=== PATIENT | female | born 1990 | race Caucasian/White ===

== ENCOUNTER 2020-06-11 23:08 | Observation (INO) ==
[2020-06-11 21:58] LABS: Basophils # 0.1 K/mcL (0.0-0.2); Basophils % 0.5 %; Eosinophils # 0.1 K/mcL (0.0-0.6); Eosinophils % 0.9 %; Hematocrit 31.2 % (35.3-44.9); Hemoglobin 9.1 g/dL (11.5-15.4); Immature Granulocytes % 2.5 % (0-4); Immature Platelets 18.4 % (1.1-6.1); Lymphocytes # 2.1 K/mcL (0.6-4.6); Lymphocytes % 15.2 %; Mean Corpuscular HGB Conc 29.2 g/dL (31.6-35.5); Mean Corpuscular Hemoglobin 21.5 pg (28.0-33.3); Mean Corpuscular Volume 73.8 fL (83.0-100.0); Mean Platelet Volume 12.9 fL (9.4-12.4); Neutrophils # 10.3 K/mcL (1.6-8.9); Nucleated Red Blood Cells 0.6 /100 WBC (0); Platelet Count 256 K/mcL (140-400); Red Blood Count 4.23 M/mcL (3.82-4.97); Red Cell Distribution Width 15.9 % (11.5-14.5); Segmented Neutrophils % 73.9 %; White Blood Count 13.9 K/mcL (4.3-11.1)
[2020-06-11 22:04] LABS: Bacteria,Urine Few per hpf (None-Few); Bilirubin,Urine Negative (Negative); Blood,Urine Negative (Negative); Clarity,Urine Turbid (Clear); Color,Urine Yellow (Yellow); Glucose,Urine (UA) Normal (Normal); Ketones,Urine Trace mg/dL (Negative); Leukocyte Esterase,Urine Large (Negative); Mucus,Urine Few per lpf (None-Few); Nitrite,Urine Negative (Negative); Protein,Urine 200 mg/dL (Neg-Trace); Specific Gravity,Urine > 1.030 (1.010-1.025); Squamous Epithelial Cell,Urine Moderate per hpf (None-Few); WBC,Urine 15-30 per hpf (0-3)
[2020-06-11 22:13] LABS: Alanine Aminotransferase 17 Units/L (7-52); Aspartate Amino Transferase 24 Units/L (13-39); BUN/Creatinine Ratio 11 (6-26); Blood Urea Nitrogen 7 mg/dL (6-20); Lactate Dehydrogenase 169 Units/L (140-271); Uric Acid 6.4 mg/dL (2.3-7.6); eGFR For African Americans > 60 (> 60); eGFR For Non-African Americans > 60 (> 60)
[2020-06-11 23:01] LABS: Protein/Creatinine Ratio,Urine 0.27 mg/mg (0.00-0.20)
[~2020-06-11 23:08] MED LIST: *HR* Labetalol 20 MG/4 ML SYRINGE IVP ONE; Ringers Solution, Lactated 1,000 ML IVC ONE; Ringers Solution, Lactated 1,000 ML IVC SCH
[2020-06-12] MEDS ORDERED: hydrOXYzine pamoate 25 MG CAPSULE PO ONE (00:22)
[2020-06-12] MEDS ORDERED: Acetaminophen 325 MG TABLET PO PRN (08:26)
[2020-06-12] MEDS ORDERED: Perflutren Lipid Microsphere 1.3 ML in 0.9 % Sodium Chloride 8.7 ML IVP PRN (08:28)
[2020-06-12 09:40] LABS: Protein/Creatinine Ratio,Urine 0.19 mg/mg (0.00-0.20)
[2020-06-12 09:49] LABS: BUN/Creatinine Ratio 9 (6-26); Blood Urea Nitrogen 6 mg/dL (6-20); Calcium 9.7 mg/dL (8.6-10.3); Carbon Dioxide 22 mEq/L (23-29); Chloride 105 mEq/L (98-107); Glucose 120 mg/dL (70-105); Osmolality,Calculated 279 (280-300); Potassium 3.9 mEq/L (3.5-5.1); Sodium 135 mEq/L (136-145); eGFR For African Americans > 60 (> 60); eGFR For Non-African Americans > 60 (> 60)
== END 2020-06-12 14:30 | disposition home or self-care (01) ==
LOC: 1NENULAB
PROVIDERS: ADMIT Obstetrics & Gynecology; ATTEND Obstetrics & Gynecology

== ENCOUNTER 2020-06-14 04:03 | Inpatient (IN) ==
[2020-06-14] MEDS ORDERED: Lidocaine 1% 20 ML MDV INFILT PRN (04:20)
[2020-06-14] MEDS ORDERED: miSOPROStoL 25 MCG TABLET PO PRN (04:20)
[2020-06-14] MEDS ORDERED: Metoclopramide 10 MG/2 ML VIAL IVP PRN (04:20)
[2020-06-14] MEDS ORDERED: Naloxone 0.4 MG/ML INJ IVP PRN (04:20)
[2020-06-14] MEDS ORDERED: Ondansetron 4 MG/2 ML VIAL IVP PRN (04:20)
[2020-06-14] MEDS ORDERED: *HR* FentaNYL (PF) 100 MCG/2 ML VIAL IVP PRN (04:20)
[2020-06-14] MEDS ORDERED: Famotidine 20 MG/2 ML VIAL IVP PRN (04:20)
[2020-06-14] MEDS: Ringers Solution, Lactated 1,000 ML IVC SCH ×2 (04:45→21:27)
[2020-06-14 04:54] LABS: Hemoglobin 8.8 g/dL (11.5-15.4); Mean Corpuscular Volume 73.7 fL (83.0-100.0); Nucleated Red Blood Cells 0.3 /100 WBC (0)
[2020-06-14] MEDS ORDERED: Acetaminophen 325 MG TABLET PO ONE (04:54)
[2020-06-14 04:56] LABS: Basophils # 0.1 K/mcL (0.0-0.2); Basophils % 0.4 %; Eosinophils # 0.2 K/mcL (0.0-0.6); Eosinophils % 1.2 %; Hematocrit 30.5 % (35.3-44.9); Immature Granulocytes % 1.8 % (0-4); Immature Platelets 18.8 % (1.1-6.1); Lymphocytes # 2.3 K/mcL (0.6-4.6); Lymphocytes % 15.6 %; Mean Corpuscular HGB Conc 28.9 g/dL (31.6-35.5); Mean Corpuscular Hemoglobin 21.3 pg (28.0-33.3); Mean Platelet Volume 12.2 fL (9.4-12.4); Monocytes % 5.1 %; Neutrophils # 11.1 K/mcL (1.6-8.9); Platelet Count 253 K/mcL (140-400); Red Blood Count 4.14 M/mcL (3.82-4.97); Red Cell Distribution Width 15.9 % (11.5-14.5); Segmented Neutrophils % 75.9 %; White Blood Count 14.6 K/mcL (4.3-11.1)
[2020-06-14 04:58] LABS: Monocytes # 0.7 K/mcL (0.0-1.3)
[2020-06-14 05:07] LABS: Amphetamine Screen,Urine Negative ng/mL (Cutoff=1000); Barbiturate Screen,Urine Negative ng/mL (Cutoff=200); Benzodiazepines Screen,Urine Negative ng/mL (Cutoff=200); Cannabinoid Screen,Urine Negative ng/mL (Cutoff = 50); Cocaine Screen,Urine Negative ng/mL (Cutoff= 300); Creatinine,Urine 224 mg/dL; Opiate Screen,Urine Negative ng/mL (Cutoff=300); Phencyclidine Screen,Urine Negative ng/mL (Cutoff=25); Protein/Creatinine Ratio,Urine 0.24 mg/mg (0.00-0.20)
[2020-06-14 05:12] LABS: Alanine Aminotransferase 15 Units/L (7-52); Aspartate Amino Transferase 21 Units/L (13-39); BUN/Creatinine Ratio 15 (6-26); Blood Urea Nitrogen 9 mg/dL (6-20); Glucose 104 mg/dL (70-105); Lactate Dehydrogenase 168 Units/L (140-271); Uric Acid 6.4 mg/dL (2.3-7.6); eGFR For African Americans > 60 (> 60); eGFR For Non-African Americans > 60 (> 60)
[2020-06-14 05:36] LABS: Platelet Estimate Normal (Normal)
[2020-06-14] MEDS ORDERED: Oxytocin 20 units/ LR 1000 mL 20 UNIT/1,000 ML BAG IVC SCH (09:30)
[2020-06-14] MEDS ORDERED: EPHEDrine 50 MG/ML VIAL IVP PRN (11:03)
[2020-06-14] MEDS ORDERED: Epidural Premix (fent/bupiv) 110 ML EP SCH (11:15)
[2020-06-15] MEDS ORDERED: CEFAZOLIN IVP ONE (02:23)
[2020-06-15] MEDS ORDERED: Azithromycin 500 MG in 0.9 % Sodium Chloride 250 ML IVPB ONE (02:23)
[2020-06-15] MEDS ORDERED: WATER FOR INJ IVP ONE (02:23)
[2020-06-15] MEDS ORDERED: Lidocaine/EPI 1:200k 2% PF 20 ML VIAL ONE (02:39)
[2020-06-15] MEDS ORDERED: *HR* Oxytocin 10 UNIT/ML VIAL IM ONE ×2 (02:44→03:49)
[2020-06-15] MEDS ORDERED: Dexamethasone 4 MG/ML VIAL ONE (02:44)
[2020-06-15] MEDS ORDERED: Ondansetron 4 MG/2 ML VIAL ONE (02:44)
[2020-06-15] MEDS ORDERED: Ketorolac 30 MG/ML VIAL ONE (02:47)
[2020-06-15] MEDS ORDERED: Ondansetron 4 MG/2 ML VIAL IVP ONE (03:13)
[2020-06-15] MEDS ORDERED: *HR* Morphine Sulfate/PF 10 MG/10 ML AMPUL ONE (03:20)
[2020-06-15] MEDS ORDERED: Acetaminophen IV 1,000 MG/100 ML INFUS..BTL ONE (03:22)
[2020-06-15] MEDS ORDERED: Ringers Solution, Lactated 1,000 ML ONE (03:48)
[2020-06-15] MEDS ORDERED: *HR* OxyCODONE/APAP 5/325 TABLET PO PRN (06:21)
[2020-06-15] MEDS ORDERED: Metoclopramide 10 MG/2 ML VIAL IVP PRN (06:21)
[2020-06-15] MEDS ORDERED: Ringers Solution, Lactated 1,000 ML IVC SCH (06:21)
[2020-06-15] MEDS ORDERED: Ondansetron 4 MG/2 ML VIAL IVP PRN (06:21)
[2020-06-15] MEDS ORDERED: Rho Immune Globulin 1,500 UNIT SYRINGE IM ONE (06:21)
[2020-06-15] MEDS ORDERED: Sennosides 8.6 MG TABLET PO PRN (06:21)
[2020-06-15] MEDS ORDERED: Oxytocin 20 units/ LR 1000 mL 20 UNIT/1,000 ML BAG IVC SCH ×2 (06:21)
[2020-06-15] MEDS: metroNIDAZOLE 500 MG TABLET PO SCH ×3 (07:57→21:38)
[2020-06-15] MEDS: cephALEXin 500 MG CAPSULE PO SCH ×3 (07:57→21:38)
[2020-06-15] MEDS: Prenatal Vit/FA 1 EACH TABLET PO SCH (07:57)
[2020-06-15] MEDS: Ibuprofen 600 MG TABLET PO PRN ×2 (14:24→21:39)
[2020-06-15] MEDS: Simethicone 80 MG TAB.CHEW PO PRN (14:28)
[2020-06-15] MEDS ORDERED: Lanolin 7 G OINT...G. TP PRN (20:40)
[2020-06-16] MEDS: Ibuprofen 600 MG TABLET PO PRN ×3 (04:09→17:57)
[2020-06-16 04:48] LABS: Basophils % 0.4 %; Immature Granulocytes % 3.1 % (0-4); Monocytes % 7.4 %
[2020-06-16 04:49] LABS: Basophils # 0.1 K/mcL (0.0-0.2); Eosinophils # 0.2 K/mcL (0.0-0.6); Hematocrit 23.1 % (35.3-44.9); Hemoglobin 6.6 g/dL (11.5-15.4); Lymphocytes % 13.4 %; Mean Corpuscular HGB Conc 28.6 g/dL (31.6-35.5); Mean Corpuscular Hemoglobin 21.4 pg (28.0-33.3); Mean Corpuscular Volume 74.8 fL (83.0-100.0); Mean Platelet Volume 12.2 fL (9.4-12.4); Monocytes # 1.1 K/mcL (0.0-1.3); Neutrophils # 10.8 K/mcL (1.6-8.9); Nucleated Red Blood Cells 0.3 /100 WBC (0); Platelet Count 164 K/mcL (140-400); Red Blood Count 3.09 M/mcL (3.82-4.97); Segmented Neutrophils % 74.7 %; White Blood Count 14.5 K/mcL (4.3-11.1)
[2020-06-16 04:56] LABS: Lymphocytes # 1.9 K/mcL (0.6-4.6)
[2020-06-16 05:24] LABS: Anisocytosis 1+ (Not Present); Microcytosis Present (Not Present)
[2020-06-16 05:25] LABS: Platelet Estimate Normal (Normal)
[2020-06-16] MEDS: cephALEXin 500 MG CAPSULE PO SCH ×3 (09:38→21:52)
[2020-06-16] MEDS: Prenatal Vit/FA 1 EACH TABLET PO SCH (09:38)
[2020-06-16] MEDS: metroNIDAZOLE 500 MG TABLET PO SCH ×3 (09:39→21:52)
[2020-06-16 16:10] LABS: Basophils # 0.1 K/mcL (0.0-0.2); Basophils % 0.3 %; Eosinophils # 0.2 K/mcL (0.0-0.6); Hematocrit 25.2 % (35.3-44.9); Hemoglobin 7.3 g/dL (11.5-15.4); Immature Granulocytes % 3.9 % (0-4); Lymphocytes # 1.8 K/mcL (0.6-4.6); Lymphocytes % 11.2 %; Mean Corpuscular Hemoglobin 22.1 pg (28.0-33.3); Mean Corpuscular Volume 76.4 fL (83.0-100.0); Mean Platelet Volume 12.4 fL (9.4-12.4); Monocytes % 6.4 %; Neutrophils # 12.1 K/mcL (1.6-8.9); Nucleated Red Blood Cells 0.1 /100 WBC (0); Platelet Count 196 K/mcL (140-400); Red Cell Distribution Width 16.2 % (11.5-14.5); Segmented Neutrophils % 77.2 %; White Blood Count 15.7 K/mcL (4.3-11.1)
[2020-06-16] MEDS: Simethicone 80 MG TAB.CHEW PO PRN (21:51)
[2020-06-17] MEDS: Ibuprofen 600 MG TABLET PO PRN ×2 (00:14→06:51)
[2020-06-17 07:50] VITALS: BP 128/90
[2020-06-17] MEDS: Prenatal Vit/FA 1 EACH TABLET PO SCH (07:59)
== END 2020-06-17 12:30 | disposition home or self-care (01) | DRG 787 ==
LOC: 1NENULAB 04:03 → 1NENUOBS 06-15 06:24
PROVIDERS: ADMIT Obstetrics & Gynecology; ATTEND Obstetrics & Gynecology